=== PATIENT | female | born 1955 | race Caucasian/White ===

== ENCOUNTER 2019-11-20 11:56 | Outpatient (CLI) | payer OTHER | END 2019-11-20 12:01 | disposition home or self-care (01) | LOC: SONOGRAMA 11:56 | PROVIDERS: ATTEND Pathology Anatomic Pathology | DX: E03.8 Other specified hypothyroidism (principal) ==

== ENCOUNTER 2020-04-29 11:06 | Outpatient (CLI) | payer OTHER | END 2020-04-29 11:09 | disposition home or self-care (01) | LOC: SONOGRAMA 11:06 | PROVIDERS: ATTEND Pathology Anatomic Pathology & Clinical Pathology | DX: E04.2 Nontoxic multinodular goiter (principal) ==